=== PATIENT | female | born 1980 | race Caucasian/White ===

== ENCOUNTER → 2016-05-24 | Outpatient (CLI) | payer OTHER ==
[~2016-05-24] MED LIST: DOCO200C2 PO; PRENTAB26 PO
[2016-05-24 12:01] LABS: URINE APPEARANCE CLEAR (CLEAR); URINE BILIRUBIN NEG (NEG); URINE COLOR YELLOW; URINE EPITHELIAL CELL AUTO >30 /lpf (0-5); URINE NITRITE NEG (NEG); URINE PH 7.5 (4.5-7.5); UROBILINOGEN NEG (NEG)
[2016-05-24 12:21] LABS: MANUAL MICROSCOPIC REQUIRED? NO; REVIEW REQ? NO
== END | disposition home or self-care (01) ==
LOC: C.LABSPEC 11:24
PROVIDERS: ATTEND Obstetrics & Gynecology
DX: Z34.80 Encounter for supervision of other normal pregnancy, unspecified trimester (principal)

== ENCOUNTER → 2016-05-26 | Outpatient (CLI) | payer OTHER ==
[2016-05-26 17:42] LABS: BASO % 0.4 %; BASO ABS # 0.06 K/uL (0-0.2); COMPLETE YES; EOS % 0.5 %; HEMATOCRIT 39.5 % (37-47); IG% 0.3 %; LYMPH % 20.7 %; LYMPH ABS # 3.16 K/uL (1.2-3.4); MEAN CELL VOLUME 75.2 fL (80-100); MEAN CORPUSCULAR HEMOGLOBIN 25.7 pg (25-34); MEAN CORPUSCULAR HGB CONC 34.2 g/dl (32-36); MONO % 7.5 %; NEUT % 70.6 %; PLATELET COUNT 252 K/uL (130-400); RED BLOOD COUNT 5.25 M/uL (4.2-5.4); WHITE BLOOD COUNT 15.25 K/uL (4.8-10.8)
[2016-06-01 13:53] LABS: CHLAMYDIA TRACH RNA*** NOT DETECTED (NOT DETECTED); GC (NEIS GONORRHOEAE)RNA** NOT DETECTED (NOT DETECTED)
== END | disposition home or self-care (01) ==
LOC: C.LAB1850 16:12
PROVIDERS: ATTEND Obstetrics & Gynecology
DX: Z34.81 Encounter for supervision of other normal pregnancy, first trimester (principal)

== ENCOUNTER → 2016-07-13 | Outpatient (CLI) | payer OTHER ==
[2016-07-13 13:15] LABS: GTGD 50 Grams
== END | disposition home or self-care (01) ==
LOC: C.LAB1850 09:34
PROVIDERS: ATTEND Obstetrics & Gynecology
DX: Z34.82 Encounter for supervision of other normal pregnancy, second trimester (principal)

== ENCOUNTER → 2016-10-06 | Outpatient (CLI) | payer OTHER ==
[2016-10-06 17:24] LABS: HEMATOCRIT 34.3 % (37-47)
[2016-10-06 17:39] LABS: GTGD 50 Grams
[2016-10-06 18:14] LABS: URINE APPEARANCE CLEAR (CLEAR); URINE BILIRUBIN NEG (NEG); URINE COLOR YELLOW; URINE EPITHELIAL CELL AUTO >30 /lpf (0-5); URINE NITRITE NEG (NEG); URINE PH 7.5 (4.5-7.5); UROBILINOGEN NEG (NEG)
[2016-10-06 18:15] LABS: MANUAL MICROSCOPIC REQUIRED? NO; REVIEW REQ? NO
== END | disposition home or self-care (01) ==
LOC: C.LAB1850 16:13
PROVIDERS: ATTEND Obstetrics & Gynecology
DX: Z34.82 Encounter for supervision of other normal pregnancy, second trimester (principal)

== ENCOUNTER → 2016-10-24 | Outpatient (CLI) | payer OTHER | END | disposition home or self-care (01) | LOC: C.LAB1850 07:27 | PROVIDERS: ATTEND Obstetrics & Gynecology | DX: O28.1 Abnormal biochemical finding on antenatal screening of mother (principal) ==

== ENCOUNTER → 2016-12-01 | Outpatient (CLI) | payer OTHER | END | disposition home or self-care (01) | LOC: C.LABSPEC 17:43 | PROVIDERS: ATTEND Obstetrics & Gynecology | DX: Z34.83 Encounter for supervision of other normal pregnancy, third trimester (principal) ==

== ENCOUNTER 2017-01-05 07:28 | Inpatient (IN) | payer OTHER ==
[~2017-01-05] VITALS: Ht 172.7 cm; Wt 90.9 kg
[2017-01-05] MEDS ORDERED: LACTATED RINGER'S 1000ML 1,000 ML IV PRN (07:56)
[2017-01-05] MEDS ORDERED: LACTATED RINGER'S 1000ML 500 ML IV PRN ×2 (08:05→14:00)
[2017-01-05] MEDS ORDERED: OXYTOCIN 30 UNITS/500ML NSS IV PRN ×2 (08:15→15:00)
[2017-01-05 08:29] LABS: HEMATOCRIT 36.3 % (37-47); MEAN CELL VOLUME 78.7 fL (80-100); MEAN CORPUSCULAR HEMOGLOBIN 26.2 pg (25-34); MEAN CORPUSCULAR HGB CONC 33.3 g/dl (32-36); MEAN PLATELET VOLUME 9.8 fL (7.4-10.4); PLATELET COUNT 160 K/uL (130-400); RED BLOOD COUNT 4.61 M/uL (4.2-5.4); WHITE BLOOD COUNT 10.87 K/uL (4.8-10.8)
[2017-01-05 08:35] VITALS: Ht 172.7 cm; Wt 90.9 kg
[2017-01-05] MEDS: LACTATED RINGER'S 1000ML 1,000 ML IV SCH ×2 (08:54→12:49)
[2017-01-05] MEDS ORDERED: EpHEDrine SULFATE INJ 50 MG/ML AMP ONE (12:22)
[2017-01-05] MEDS ORDERED: FENTANYL 2MCG/ML ROPIV 1.25MG/ML 100ML BAG EPI ONE (12:22)
[2017-01-05] MEDS ORDERED: BUPIVACAINE 0.25% 30 ML VIAL ONE (12:22)
[2017-01-05] MEDS ORDERED: FENTANYL CITRATE INJ 50 MCG/1 ML 2 ML VIAL ONE (12:23)
[2017-01-05] MEDS ORDERED: DiphenhydrAMINE HCL 50 MG/ML VIAL IV PRN (14:00)
[2017-01-05] MEDS ORDERED: FENTANYL 2MCG/ML ROPIV 1.25MG/ML 100ML BAG EPI PRN (14:00)
[2017-01-05] MEDS ORDERED: NALOXONE HCL INJ 1 MG in SODIUM CHLORIDE 0.9% 1000ML 1,000 ML IV PRN (14:00)
[2017-01-05] MEDS ORDERED: NALBUPHINE HCL INJ 10 MG/ML AMP IV PRN (14:00)
[2017-01-05] MEDS ORDERED: PROMETHAZINE HCL INJ 6.25 MG in SODIUM CHLORIDE 0.9% 50ML 50 ML IV PRN (14:00)
[2017-01-05] MEDS ORDERED: ONDANSETRON INJ 2 MG/ML 2 ML VIAL IV PRN (14:00)
[2017-01-05] MEDS ORDERED: EpHEDrine SULFATE INJ 50 MG/ML AMP IV PRN (14:00)
[2017-01-05] MEDS ORDERED: NALOXONE HCL INJ 0.4 MG/1 ML VIAL/CARP IV PRN (14:00)
[2017-01-05] MEDS ORDERED: NITROGLYCERIN/D5W 100 MCG/ML BTL ONE (14:50)
[2017-01-05] MEDS ORDERED: CEFAZOLIN SOD 1 GM VIAL ONE (14:50)
[2017-01-05] MEDS ORDERED: SUPERCREAM 0.870 % 15GM JAR EXT PRN (15:00)
[2017-01-05] MEDS ORDERED: HYDROCORTISONE ACETATE 25 MG SUPP PR PRN (15:00)
[2017-01-05] MEDS ORDERED: IBUPROFEN 600 MG TAB PO PRN (15:00)
[2017-01-05] MEDS ORDERED: BENZOCAINE 20% AER SPR 82.5 GM CAN EXT PRN (15:00)
[2017-01-05] MEDS ORDERED: LANOLIN OINT EXT PRN ×2 (15:00)
[2017-01-05] MEDS ORDERED: ACETAMINOPHEN/CODEINE 300/30MG TAB PO PRN ×2 (15:00)
[2017-01-05] MEDS ORDERED: OXYCODONE/ACETAMINOPHEN 5-325 TAB PO PRN (15:00)
[2017-01-05] MEDS ORDERED: ACETAMINOPHEN 325 MG TAB PO PRN (15:00)
[2017-01-05] MEDS ORDERED: MEPERIDINE HCL 25 MG/ML CARP ONE (15:09)
--- NOTE | 2017-01-05 15:27 | DELIVERY SUMMARY ---
DATE OF OPERATION: 01/05/2017 Kenny was induced on January 05, 2017 for post-dates 41 weeks and 0 days, 4 cm dilated, group B strep negative, uncomplicated , second baby. She received Pitocin and then ruptured spontaneously for membranes. She then became fully dilated. Her heart rate tracing was category 1. Pushed only a few contractions and was able to deliver a baby in left occiput anterior position. Mouth and then nares suctioned. Baby was delivered with gentle traction. No excessive force used. Live, vigorous male intact. Cord clamped and cut. Cord gases obtained. Cord blood obtained. 3-0 Vicryl was used to repair a second degree tear. Sponge, needle and instrument counts correct. Unfortunately the placenta was retained and after more than 30 minutes of waiting I was unable to remove it. We went back to the operating room on the 4th floor and Dr. Arevalo increased her epidural dose and was given some nitroglycerin as well to relax the uterus. At this stage I was then able to do a manual extraction of the uterus. IV Ancef 2 grams was given as well. I felt at this stage I was able to manually examine the entire uterus and there was no more retained products. Carefully I looked at the cervix. There was no laceration and her second degree tear was still intact. Sponge and instrument counts were correct. Estimated blood loss for the entire procedure 300 mL. I attest to the content of the Intraoperative Record and any orders documented therein. Any exception s are noted below.
--- NOTE | 2017-01-05 16:32 | Anesthesia Procedure Note ---
Anesthesia Epidural Removal Nt Date & Time Jan 05, 2017 at 16:32 Vital Signs Pain Intensity: 0.0 Notes Mental Status: alert / awake / arousable, participated in evaluation Nausea / Vomiting: adequately controlled Pain: adequately controlled Airway Patency, RR, SpO2: stable & adequate BP & HR: stable & adequate Hydration State: stable & adequate Neuraxial Anesthesia: was administered Anesthetic Complications: no major complications apparent, pt satisfied with anesthetic care Epidural: removed without complications, with tip intact
--- NOTE | 2017-01-05 16:32 | Anesthesiology Progress Note ---
Anesthesia Post Op Note Date & Time Jan 05, 2017 at 16:32 Vital Signs Pain Intensity: 0.0 Notes Mental Status: alert / awake / arousable, participated in evaluation Pt Amnestic to Procedure: No Nausea / Vomiting: adequately controlled Pain: adequately controlled Airway Patency, RR, SpO2: stable & adequate BP & HR: stable & adequate Hydration State: stable & adequate Anesthetic Complications: no major complications apparent Patient was not sedated. Hemodynamics and uterine tone managed by anesthesiologist.
[2017-01-05 18:20] VITALS: BP 121/67; PULSE 105; TEMP 36.7
[2017-01-05 20:05] VITALS: BP 90/58; PULSE 81; TEMP 36.7; O2SAT 97
[2017-01-05] MEDS: DOCUSATE SODIUM 100 MG CAP PO SCH (20:28)
[2017-01-05 23:20] VITALS: BP 99/61; PULSE 86; TEMP 37; O2SAT 99
[2017-01-06 04:20] VITALS: BP 109/61; PULSE 91; TEMP 36.9; O2SAT 98
--- NOTE | 2017-01-06 06:39 | OB/GYN Progress Note ---
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 Subjective conversation w/ patient, physical exam, chart review, lab review Ambulation: ambulating normally Voiding: no voiding problems Passing Gas: Yes Diet Tolerance: Regular Diet Lochia: Moderate Feeding Type: Breast Feeding Pain: controlled Review of Systems Respiratory: No shortness of breath Cardiac: No chest pain Abdomen: No nausea, No vomiting Female : No dysuria Objective Vital Signs Date Time Temp Pulse Resp B/P (MAP) Pulse Ox O2 Delivery O2 Flow Rate FiO2 01/06/17 04:20 36.9 91 16 109/61 (77) 98 Room Air 01/05/17 23:20 37.0 86 16 99/61 (74) 99 Room Air 01/05/17 23:20 Room Air 01/05/17 20:05 36.7 81 20 90/58 (69) 97 Room Air 01/05/17 18:20 36.7 105 18 121/67 (85) Room Air 01/05/17 17:50 Room Air Physical Exam General Appearance: WELL-APPEARING, WD/WN, NO APPARENT DISTRESS Respiratory/Chest: lungs clear Cardiovascular: regular rate, rhythm Abdomen: normal bowel sounds, soft Fundus: Firm, Tender (appropriately tender), Relation to Umbilicus (fundus at level of U) Extremities: non-tender Laboratory Results Last 24 Hours Test 01/05/17 08:13 01/06/17 04:44 White Blood Count 10.87 K/uL Red Blood Count 4.61 M/uL Hemoglobin 12.1 g/dL Hematocrit 36.3 % Mean Corpuscular Volume 78.7 fL Mean Corpuscular Hemoglobin 26.2 pg Mean Corpuscular Hemoglobin Concent 33.3 g/dl RDW Standard Deviation 45.6 fL RDW Coefficient of Variation 15.8 % Platelet Count 160 K/uL Mean Platelet Volume 9.8 fL Assessment and Plan Post- Day Number: 1 Continue Routine Care: - Vital Signs reviewed and WNL. - Hemoglobin pending. - Blood Type: O-, GBS-, Rubella Immune. AntiD profile ordered. - Baby is A+. Will order rhogam to be given today. - Delivery complicated by delayed placental delivery requiring manual extraction. - Pt is doing well clinically. - Encourage Ambulation, Monitor and Control pain with Motrin PRN, Resume regular diet, Monitor Lochia - Encourage Breast Feeding. - Routine PPD 1 AKSHAT HAVEN PGY1 FMR Resident Physician Supervision Note: I interviewed and examined the patient. Discussed with Dr. Sy and agree with findings and plan as documented in the note. Any exceptions or clarifications are listed here: [None] Documented By: Joce Chowdary
[2017-01-06 07:01] LABS: HEMATOCRIT 31.2 % (37-47)
--- NOTE | 2017-01-06 07:03 | Discharge Instructions ---
Discharge Instructions Date of Service Jan 06, 2017. Admission Reason for Admission: Induction Discharge Discharge Diagnosis / Problem: Delivery Discharge Goals Goal(s): Routine recovery after delivery Medications Continue Dispensed Medications: supercream, dermaplast, tucks, lansinoh Activity Recommendations Activity Limitations: per Instructions/Follow-up section . Instructions / Follow-Up Instructions / Follow-Up ACTIVITY RECOMMENDATIONS: * Gradual return to full activity over the next 2-3 weeks. * No lifting - nothing heavier than baby over the next 2-3 weeks. * Do not engage in vigorous exercise, sexual activity or sports until cleared by your physician. * Do not drive or operate any motorized equipment until cleared by your physician. * You may shower/bathe daily. MEDICATIONS: For discomfort or pain, you may use Acetaminophen (Tylenol), Ibuprofen (Advil), or Naproxen (Aleve) following the package directions. For constipation you may use Colace following the package directions. BREAST CARE: If you are not breast feeding: * Wear a supportive bra 24 hours a day for one to two weeks. * Avoid stimulating your breasts and nipples as much as possible during the first few weeks after delivery. * When taking a shower, have the warm water hit your back, not breasts. * When your breasts feel full, apply ice packs. Usually three to four times a day helps ease the discomfort. * Take a mild pain medication (Tylenol / Motrin) when you are uncomfortable. If breast feeding: * Use breast milk to lubricate nipples. Lansinoh cream may be used for sore nipples. You do not need to remove cream prior to breast feeding. If using a different brand of cream, check the label for directions regarding removal of cream prior to nursing. * Wear a supportive bra. * If having problems with breasts or breast feeding, call a business objects consultant or your health care provider. EPISIOTOMY CARE: After delivery, if you have an episiotomy (stitches), the following steps will ease discomfort and aid healing. * For the first 24 hours after delivery, place ice packs next to your episiotomy to help reduce swelling. * After the first 24 hour-period, sitz baths, either portable or in the tub, are suggested. A shower with a shower arm sprayed over the episiotomy may be comforting. * Sharon care should be done after each voiding and bowel movement. Squirt warm water from a plastic bottle over the perineum (region of the body between the anus and urinary opening) and pat dry. * Use Dermoplast to ease discomfort. Shake container. [place] directly over the episiotomy. Place a Tucks on a clean sanitary pad next to your episiotomy. SPECIAL CARE INSTRUCTIONS: When you are discharged from the hospital, it is important for you to follow the instructions listed below: * During the first week at home, you should be able to care for yourself and your baby. In addition, the usual light household activities are encouraged. * Limit your activities to the way you feel. Do not try to clean the house or move furniture. Be sensible. * If you actively engage in sports and have done so up until the time of your delivery, you may resume these activities as soon as you feel able. This may take up to one month or even longer. Use good judgment. * Continue to take your vitamins for at least six weeks after the of your baby. * Your diet need not be limited unless you were on a special diet before your delivery. Breast-feeding mothers need around 2500 calories per day and at least 64-80 ounces of fluid per day (8 to 10 glasses). * You should eat foods from the four major food groups. Crash diets or fad diets are to be avoided. Eating lean meats, fresh fruits and vegetables, low-fat dairy products, high fiber foods and a regular exercise program, will help you get back to your pre- weight without putting your health at risk. * Constipation is sometimes a problem after delivery. Take a mild laxative as needed. If breast feeding, Milk of Magnesia is acceptable to use. You may use a suppository or Fleets enema if no episiotomy. * A daily shower or tub bath is suggested. Be sure to thoroughly and gently dry the perineum. * A bloody vaginal discharge will usually continue until around four weeks post . A small amount of bleeding may continue for as long as six weeks. Vaginal discharge changes from the bright red bleeding after delivery to pink then brownish and finally yellowish-pink before becoming white and disappearing. * Bleeding may increase with activity. Your first period may come in 4-8 weeks. If you are breast feeding, your period may be delayed even longer. * [place] (sex) can begin whenever both you and your partner feel comfortable and do not have any form of genital infection. It is recommended that you wait at least six weeks for internal and external healing to occur. If you have questions, please talk to your health care practitioner. A condom should be used to prevent infection and . * Foreplay, gentle intercourse and lubrication is very important the first several times to prevent pain. A water-based lubricant such as K-Y jelly or Astroglide may be used. * If you have RH negative blood and your baby is RH positive, you will receive RHOGAM by injection prior to discharge. The nurse will give you a card to keep with you that has the date and place that you received RHOGAM after delivery. * During your care, you had a Rubella screen done to check for the presence of rubella antibodies in your blood. If your test was negative, you will receive a Rubella vaccine prior to discharge. This vaccine may cause a fever, soreness at the injection site and flu-like symptoms. If these symptoms persist, notify your health care practitioner. is not advised for one month after a Rubella vaccine. * Verbalizes understanding of car seat law as reviewed with patient nursing. * Car Seat hand-out given and reviewed with patient by nursing. * Shaken baby information reviewed with patient by nursing. Call you doctor if: * Heavy bleeding (saturating several pads an hour) or passing clots the size of your fist. * A fever >101 degrees F (38.3 degrees C) on two occasions four hours apart and /or chills. * Unusual pain in the pelvic or vaginal areas. * "Baby Blues" lasting longer than two weeks. If you have any questions or concerns, call your health care practitioner at . FOLLOW UP VISIT: * Please call the office at to schedule a 6 week examination. It is important you keep this appointment. It is important for you to make arrangements for either yearly or twice yearly check-ups thereafter. Current Hospital Diet Patient's current hospital diet: Regular OB Diet Discharge Diet Recommended Diet: Regular Diet Pending Studies Studies pending at discharge: no Medical Emergencies . Who to Call and When: Medical Emergencies: If at any time you feel your situation is an emergency, please call 911 immediately. . Non-Emergent Contact Non-Emergency issues call your: Primary Care Provider . . "Provider Documentation" section prepared by Regina Sy. . VTE Core Measure Inpt VTE Proph given/why not?: Treatment not indicated Resident Tracking Resident Involvement: Resident Care Provided Care Provided: OB Delivery
[2017-01-06] MEDS ORDERED: PRENATAL VITAMIN TAB PO SCH (08:00)
[2017-01-06] MEDS: DOCUSATE SODIUM 100 MG CAP PO SCH (08:26)
[2017-01-06 09:00] VITALS: BP 112/64; PULSE 85; TEMP 36.9; O2SAT 98
[2017-01-06 12:20] VITALS: BP 115/67; PULSE 84; TEMP 37.3; O2SAT 97
[2017-01-06 15:40] VITALS: BP_DIAS 67; PULSE 84; TEMP 37.3
[2017-01-06] MEDS ORDERED: BISACODYL 5 MG TABEC PO SCH (20:00)
[2017-01-07] MEDS ORDERED: BISACODYL 10 MG SUPP PR PRN (07:00)
== END 2017-01-06 16:10 | disposition home or self-care (01) | DRG 774 ==
LOC: C.LD 07:28 → C.OBG 17:58
PROVIDERS: ADMIT Obstetrics & Gynecology; ATTEND Obstetrics & Gynecology
PROC: 10E0XZZ Delivery of Products of Conception, External Approach (ICD-10-PCS; principal; 2017-01-05)
PROC: 0KQM0ZZ Repair Perineum Muscle, Open Approach (ICD-10-PCS; principal; 2017-01-05)
DX: O48.0 Post-term pregnancy (principal); O72.2 Delayed and secondary postpartum hemorrhage; O26.893 Other specified pregnancy related conditions, third trimester; O70.1 Second degree perineal laceration during delivery; O36.8130 Decreased fetal movements, third trimester, not applicable or unspecified; Z67.41 Type O blood, Rh negative; Z37.0 Single live birth; Z3A.41 41 weeks gestation of pregnancy

== ENCOUNTER → 2017-05-22 | Outpatient (CLI) | payer OTHER ==
--- NOTE | 2017-05-22 14:28 | DIAGNOSTIC IMAGING REPORT ---
WRIST W/NAVICULAR MIN 3 VIEWS HISTORY: 37 years-old Female R WRIST PAIN acute right-sided wrist pain COMPARISON: None available TECHNIQUE: 4 views of the wrist with PA navicular view FINDINGS: No acute fracture, subluxation or significant degenerative changes. The scaphoid appears intact. No opaque foreign body or significant soft tissue swelling. IMPRESSION: No acute fracture or subluxation. The above report was generated using voice recognition software. It may contain grammatical, syntax or spelling errors. Electronically signed by: Ernesto Swift M.D. 05/22/2017 2:27 PM Dictated Date/Time: 05/22/2017 2:25 PM
== END | disposition home or self-care (01) ==
LOC: C.RAD 13:57
PROVIDERS: ATTEND Physician Assistant
DX: M25.531 Pain in right wrist (principal)

== ENCOUNTER 2021-03-17 07:08 | Inpatient (IN) ==
[2021-03-17] MEDS ORDERED: OXYTOCIN 30 UNITS/500 ML BAG IV PRN ×3 (08:03→14:01)
[2021-03-17] MEDS: LACTATED RINGER'S 1,000 ML IV PRN ×2 (08:48→12:45)
--- NOTE | 2021-03-17 08:50 | History & Physical Report ---
Date of Service March 17, 2021 Assessment & Plan (1) Encounter for induction of labor: Plan: plan pitocin induction and arom when indicated. epidural on demand. Fetus category one. Anticipate . Admission and Anticipated Discharge Date Admission Date: March 17, 2021 History of Present Illness Chief Complaint: induction Primary Care Provider: NO PCP Patient is a with iup at 40 0/7 weeks who presents to labor and delivery for elective induction of labor. Patient notes some cramping but no contractions. No lof/vb. +fm. Patient is AMA with low risk panorama. Rh neg. Hx of thyroiditis, followed by PCP and nl tfts through . OB Labs: Blood Type O Negative 08/03/20 Antibody Screen NEGATIVE 12/23/20 Hemoglobin 11.5 g/dL (12.0-16.0) L 12/23/20 Hematocrit 35.6 % (37-47) L 12/23/20 Mean Corpuscular Volume 75.7 fL (80-100) L 08/03/20 Platelet Count 296 K/uL (130-400) 08/03/20 A Rubella IgG Antibody Immune (Immune) 08/03/20 Rapid Plasma Reagin Nonreactive (Nonreactive) 08/03/20 Hepatitis B Surface Antigen Neg (Neg) 08/03/20 HIV (1&2) Ab and P24 Ag, 4th Gener Neg (Neg) 08/03/20 Glucose 1 Hour 50 gm Load 139 mg/dl (70-130) H 12/23/20 Maternal Serum Alpha Fetoprotein 43.1 ng/mLB 10/01/20 OB Optional Labs: Chlamydia trachomatis RNA NOT DETECTED (NOT DETECTED) 08/03/20 Neisseria gonorrhoeae RNA NOT DETECTED (NOT DETECTED) 08/03/20 Thyroid Stimulating Hormone (TSH) 1.490 uIu/ml (0.300-4.500) 12/23/20 Alpha Fetoprotein Triple Screen SEE NOTE 10/01/20 Labs Reviewed: declined cf/sma--akh low risk cfdna--akh neg afp--akh gbs neg Allergies Allergy/AdvReac Type Severity Reaction Status Date / Time Sulfa (Sulfonamide Allergy Mild RASH Verified 03/16/21 13:16 Antibiotics) Home Medications Medication Instructions Recorded Confirmed Type omega-3 fatty acids [Fish Oil] PO 07/26/20 03/16/21 History prenat.vits,lynn,[id number] 1 tab PO DAILY 07/26/20 03/17/21 History breast pump #1 ea 02/17/21 03/16/21 Rx Patient History Medical History Family history of malignant neoplasm of female breast Groin cyst Heart palpitations History of chicken pox Normal labor Post-dates Thyroiditis Surgical History History of colposcopy S/P wisdom tooth extraction Family History Mother Breast cancer Hypertension Denies family history of Ovarian cancer Colorectal cancer Social History Smoking Status: Never smoker Second Hand Exposure: No; Do You Dip or Chew Tobacco: No; Hx Alcohol Use: No Hx Substance Use: No Preferred Language: Ivorian Communication Ability: Effective 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: No Beliefs That Will Affect Care: None marital status: marital status details: [place] (41) [phone] Current Living Situation: Spouse Current Living Situation Comment: lives with spouse, 2 children, dog current occupational status: employed 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 Other Information That Helps Us Care for You: No Feels Safe at Home: Yes Safety Concerns: Feels Safe At This Time Assistive Devices: None OB History g1--09/18, 7#5, no issues g2--01/21, , 8#13, no issues 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
[2021-03-17 08:54] LABS: Hematocrit (blood only) 37.3 % (37-47); Mean Corpuscular Hemoglobin 27.3 pg (25-34); Mean Corpuscular Hgb Conc 34.9 g/dL (32-36); Mean Corpuscular Volume 78.2 fL (80-100); Mean Platelet Volume 9.5 fL (7.4-10.4); Platelet Count 232 K/uL (130-400); RDW Coefficient of Variation 16.2 % (11.5-14.5); RDW Standard Deviation 46.5 fL (36.4-46.3); Red Blood Count 4.77 M/uL (4.2-5.4); White Blood Count 11.59 K/uL (4.8-10.8)
[2021-03-17] MEDS ORDERED: FLUARIX QUADRIVALENT 0.5 ML SYR IM ONE (09:00)
[2021-03-17] MEDS ORDERED: SODIUM CHLORIDE 0.9% INJ 10 ML VIAL ONE (12:20)
[2021-03-17] MEDS ORDERED: ePHEDrine sulfate 50 MG/ML AMP ONE (12:20)
[2021-03-17] MEDS ORDERED: BUPIVACAINE 0.25% 30 ML VIAL ONE ×2 (12:20→13:12)
[2021-03-17] MEDS ORDERED: fentaNYL citrate 100 MCG/2 ML VIAL ONE ×2 (12:21→13:14)
[2021-03-17] MEDS ORDERED: fentaNYL 2MCG/ML ROPIVACAINE 1.25MG/ML 100 ML BAG EPI ONE (12:21)
[2021-03-17] MEDS ORDERED: NALOXONE HCL 0.4 MG/1 ML VIAL/CARP IV PRN (12:37)
[2021-03-17] MEDS ORDERED: ONDANSETRON INJ 2 MG/ML 2 ML VIAL IV PRN (12:37)
[2021-03-17] MEDS ORDERED: NALOXONE HCL 1 MG in SODIUM CHLORIDE 0.9% 1000ML 1,000 ML IV PRN (12:37)
[2021-03-17] MEDS ORDERED: NALBUPHINE HCL INJ 10 MG/ML AMP IV PRN (12:37)
[2021-03-17] MEDS ORDERED: diphenhydrAMINE 50 MG/ML VIAL IV PRN (12:37)
[2021-03-17] MEDS ORDERED: fentaNYL 2MCG/ML ROPIVACAINE 1.25MG/ML 100 ML BAG EPI PRN (12:37)
[2021-03-17] MEDS ORDERED: ePHEDrine sulfate 50 MG/ML AMP IV PRN (12:37)
--- NOTE | 2021-03-17 12:45 | Anesthesiology Consultation ---
Date of Service March 17, 2021 Assessment & Plan Chart Review Chart Review: Patient NOT seen in Pre Admission Testing and Acceptable Risk for Labor Epidural Consults Requested none ASA ASA2 Proposed Anesthesia Anesthesia Type: Labor Epidural and CSE Risk / Benefits Reviewed With: PT / POA / Parent / Guardian, Accepts Plan and Informed Consent Obtained History Height/Weight Height: 5 ft 8 in Weight: 96.162 kg Allergies Allergy/AdvReac Type Severity Reaction Status Date / Time Sulfa (Sulfonamide Allergy Mild RASH Verified 03/16/21 13:16 Antibiotics) Medications Home Medications Medication Instructions Recorded Confirmed Last Taken omega-3 fatty acids [Fish Oil] PO 07/26/20 03/16/21 03/16/21 prenat.vits,lynn,[id number] 1 tab PO DAILY 07/26/20 03/17/21 03/16/21 breast pump #1 ea 02/17/21 03/16/21 Unknown Active Medications Generic Name Dose Route Start Last Admin Trade Name Freq PRN Reason Stop Dose Admin Lactated Ringer's 1,000 mls @ 125 mls/hr 03/17/21 08:03 03/17/21 11:34 Lr IV 03/19/21 08:02 999 mls/hr .Q8H PRN Infusion L&D Protocol Protocol Oxytocin 30 units in 500 mls @ 9 mls/hr 03/17/21 08:03 03/17/21 11:30 Pitocin IV 03/19/21 08:02 0.54 units/hr .Q24H PRN 9 mls/hr Labor Induction/Augmentation Titration Protocol 0.54 UNITS/HR NPO Date Last Intake of Fluids: 03/17/21 Time Last Intake of Fluids: 12:00 Date Last Intake of Solids: 03/17/21 Time Last Intake of Solids: 07:00 Past Medical History Medical History Family history of malignant neoplasm of female breast Groin cyst Heart palpitations History of chicken pox Normal labor Post-dates Thyroiditis Exercise / Class Metabolic Activity II 4-5 Yardwork/Stairs/Walk up hill Past Family History Family History Mother Breast cancer Hypertension Denies family history of Ovarian cancer Colorectal cancer Past Surgical History Surgical History History of colposcopy S/P wisdom tooth extraction Past Anesthesia History No Hx of Anesthesia Complications and No Family Hx of Anesthesia Complications History of PONV No Hx of PONV and No Hx of Motion Sickness Social History Smoking Status: Never smoker Do You Dip or Chew Tobacco: No Hx Alcohol Use: No Hx Substance Use: No substance use type: does not use Review of Systems no chest pain or sob Physical Exam Vital Signs Last Vital Signs Temp 36.9 C 03/17/21 11:28 Pulse 83 03/17/21 12:43 Resp 18 03/17/21 11:28 BP 124/78 03/17/21 12:43 Pulse Ox 98 03/17/21 12:42 ENMT Mouth: no TMJ abnormality Thyromental Distance: > or= 3.5 Finger Breadths Mallampati Class: II Neck normal visual inspection Respiratory normal respiratory effort Auscultation: lungs clear to auscultation bilaterally Cardiovascular Rate/Rhythm: regular rate and regular rhythm Musculoskeletal Spine: normal cervical ROM Neurologic moves all extremities Psychiatric Orientation: alert and oriented x 3 Testing Laboratory Results 03/17/21 08:22
[2021-03-17] MEDS ORDERED: SUPERCREAM 0.870% 15 GM JAR EXT PRN (14:01)
[2021-03-17] MEDS ORDERED: HYDROCORTISONE ACETATE 25 MG SUPP PR PRN (14:01)
[2021-03-17] MEDS ORDERED: ACETAMINOPHEN 325 MG TAB PO PRN (14:01)
[2021-03-17] MEDS ORDERED: IBUPROFEN 600 MG TAB PO PRN (14:01)
[2021-03-17] MEDS ORDERED: DIPHTHERIA/TETANUS/PERTUSSIS 0.5 ML SYR/VIAL IM ONE (14:01)
[2021-03-17] MEDS ORDERED: BENZOCAINE 20% AER SPR 82.5 GM CAN EXT PRN (14:01)
--- NOTE | 2021-03-17 14:05 | Delivery Summary ---
Vaginal Delivery Summary Date of Service March 17, 2021 Vaginal Delivery Summary and 2nd Degree LAC Pre-operative Diagnosis: at 40 weeks Post-operative Diagnosis: same Procedure: pitocin induction epidural srom second degree laceration and repair EBL: 400cc Anesthesia: epidural Procedure: the patient presented to labor and delivery for elective induction with favorable cervix. Pitoin was initiated. She got an epidural then had srom. She progressed quickly to c/c/ +1. The patient pushed for 3-4 contractions to deliver a viable female infant in kelsea position. The anterior shoulder was immediately delivered and the rest of was then delivered without difficulty. The baby was vigorous. The nose and mouth were again bulb suctioned and the infant was placed in the maternal abdomen for drying and attention. Cord was clamped and cut at one minute of life. Cord blood and segment obtained. Placenta delivered spontaneous, intact with a three vessel cord. Cervix/sulci/rectum were intact. A second degree perineal laceration was repaired in the normal standard fashion. Hemostasis obtained with dilute pitocin and fundal massage. Apgars were 8/9. Mother and baby doing well at the end of the delivery. [facility] [place] Vaginal Delivery Charge Delivery Type Details: and 2nd Degree LAC
[2021-03-17] MEDS ORDERED: COSYNTROPIN 1,000 MCG in SODIUM CHLORIDE 0.9% 50 ML IV ONE (14:45)
[2021-03-17] MEDS ORDERED: CAFFEINE CITRATE 500 MG in SODIUM CHLORIDE 0.9% 1000ML 1,000 ML IV SCH (15:00)
--- NOTE | 2021-03-17 15:05 | Anesthesia Procedure Note ---
Date of Service March 17, 2021 Anesthesia Post Epidural Note Vital Signs Vital Signs: Temp Pulse Resp BP Pulse Ox 36.9 C 80 18 106/71 91 03/17/21 11:28 03/17/21 14:45 03/17/21 11:28 03/17/21 14:42 03/17/21 14:45 Pain Intensity Lower Abdomen: Pain Intensity: 4 Notes Mental Status: alert / awake / arousable and participated in evaluation Nausea / Vomiting: adequately controlled Pain: adequately controlled Airway Patency, RR, SpO2: stable & adequate BP & HR: stable & adequate Hydration State: stable & adequate Neuraxial Anesthesia: was administered and sensory block is resolving Anesthetic Complications: no major complications apparent, see Notes below and Pt Satisfied with anesthetic care Epidural: Removed without complications and With tip intact Notes: The patient had a CSE. The Touhy needle was initially placed at the L4/5 spinal space. ADDISON was obtained. The spinal needle was placed with CSF observed. The spinal dose was given. There was some difficulty threading the epidural catheter. While attempting to thread the catheter, the patient moved slightly and CSF was noted in the Touhy needle. The Touhy needle was immediately removed and an epidural catheter was easily placed at L3/4. The possibility of a dural puncture headache was discussed with the patient. She wanted to prophylactically prevent a dural headache. The patient was consented to get a blood patch prior to removal of her epidural catheter after delivery of her baby. The mobile sales assistant assisted during the procedure. Using sterile gloves and sterile technique the patient's left arm was prepped with Duraprep. A sterile tourniquet and two sterile 12 ml syringes were used to draw a total of 20 ml of blood from the patient's arm. The epidural catheter was disconnected from the running epidural pump, swabbed with alcohol, and then the blood was sterilely in jected by me into the epidural space. After 20 ml of blood were injected, the epidural catheter was removed with tip intact. The patient felt a "fullness" in her head after the blood patch but otherwise feels well. She will be given cosyntropin IV as well as caffeine IV. The patient was encouraged to stay well hydrated as well as to drink caffeinated beverages. Both NSAIDs and acetaminophen were encouraged for pain control. I spoke to her about possibly needing a second blood patch tomorrow or the following day if necessary.
[2021-03-17] MEDS: DOCUSATE SODIUM 100 MG CAP PO SCH (21:19)
--- NOTE | 2021-03-18 06:16 | Obstetrical Progress Note ---
Date of Service <Rikki Cole DO - Last Filed: 03/18/21 07:02> March 18, 2021 Assessment & Plan <Rikki Cole DO - Last Filed: 03/18/21 07:02> (1) Encounter for care and examination after delivery: 40 yo post day 1 from vaginal delivery, doing well. -Continue routine post care - vital signs reviewed and WNL. (Tmax 37.2) -Blood type O-, GBS -, Rubella Immune -Encourage ambulation, monitor and control pain with Motrin, tylenol PRN, resume regular diet, monitor lochia. -encourage breast feeding -hemoglobin 13.0 <Radha Poe MD, FACOG - Last Filed: 03/18/21 07:03> (1) Encounter for care and examination after delivery: Subjective <Rikki Cole DO - Last Filed: 03/18/21 07:02> Ambulation: ambulating normally Voiding: no voiding problems Passing Gas:: Yes Diet Tolerance:: regular diet Lochia:: Small Feeding Type:: breast feeding Current Pain Level(1-10): 0 Review of Systems Denies fever, chills, sweats Denies shortness of breath, difficulty breathing, chest pain, palpitations, chest pressure. Denies breast pain. Denies dysuria. Denies headache or changes in vision Physical Exam <Rikki Cole DO - Last Filed: 03/18/21 07:02> General: Alert, oriented. No acute distress. Cardiac: Regular rate and rhythm, no murmurs/rubs/gallops. Respiratory: Clear to auscultation bilaterally a/p, no wheezes/rales/rhonchi. No increased work of breathing. Symmetrical chest rise. No respiratory distress. Abdomen: Soft, nontender, nondistended. Bowel sounds present. Uterus: Uterine fundus firm, palpable 2 cm below umbilicus. Lower Extremities: No lower extremity edema or swelling. No deep calf pain. Alfredo's negative bilaterally Results & Data ([facility]) <Rikki Cole DO - Last Filed: 03/18/21 07:02> Vital Signs (Past 12 Hours) Vital Signs Temp Pulse Resp BP Pulse Ox 03/18/21 04:50 37.1 C 61 17 101/58 L 97 03/17/21 23:40 36.9 C 64 16 101/60 98 03/17/21 19:35 37.1 C 71 18 114/65 96 <Radha Poe MD, FACOG - Last Filed: 03/18/21 07:03> Co-Signing Physician Notes Resident Physician Supervision Note: I interviewed and examined the patient. Discussed with Dr. Mathis and agree with findings and plan as documented in the note. Any exceptions or c larifications are listed here: Doing well. PLan to monitor today for possibility of spinal seay. Probable d/c tomoorrow. Documented By: Radha Poe MD, FACOG Resident Activity Tracking <Rikki Cole DO - Last Filed: 03/18/21 07:02> Resident Involvement: Resident Care Provided Care Provided: OB Delivery
[2021-03-18 06:23] LABS: Hematocrit (blood only) 34.7 % (37-47); Hemoglobin 11.2 g/dL (12.0-16.0); Mean Corpuscular Hemoglobin 26.1 pg (25-34); Mean Corpuscular Hgb Conc 32.3 g/dL (32-36); Mean Corpuscular Volume 80.9 fL (80-100); Mean Platelet Volume 9.2 fL (7.4-10.4); Platelet Count 194 K/uL (130-400); RDW Coefficient of Variation 16.3 % (11.5-14.5); RDW Standard Deviation 47.9 fL (36.4-46.3); Red Blood Count 4.29 M/uL (4.2-5.4); White Blood Count 15.24 K/uL (4.8-10.8)
--- NOTE | 2021-03-18 08:08 | Anesthesiology Progress Note ---
Date of Service March 18, 2021 Anesthesia Post Procedure Vital Signs Vital Signs: Temp Pulse Pulse Resp BP BP Pulse Ox 03/18/21 04:50 37.1 C 61 17 101/58 L 97 03/17/21 23:40 36.9 C 64 16 101/60 98 03/17/21 19:35 37.1 C 71 18 114/65 96 03/17/21 16:35 37.2 C 80 16 110/67 97 03/17/21 15:12 82 125/59 L 03/17/21 15:02 79 111/70 03/17/21 14:52 88 113/70 03/17/21 14:45 80 91 03/17/21 14:42 67 106/71 100 03/17/21 14:37 81 100 03/17/21 14:32 82 100 03/17/21 14:27 88 99 03/17/21 14:22 82 99 03/17/21 14:17 81 99 03/17/21 14:12 86 100 03/17/21 14:07 103 H 119/56 L 99 03/17/21 14:04 100 H 111/58 L 03/17/21 14:02 103 H 99 03/17/21 14:01 84 118/64 03/17/21 13:58 91 H 116/63 03/17/21 13:57 88 99 03/17/21 13:55 89 116/66 03/17/21 13:52 100 H 99 03/17/21 13:49 214 H 141/118 H 03/17/21 13:47 137 H 100 03/17/21 13:46 89 127/68 03/17/21 13:43 102 H 134/72 03/17/21 13:42 109 H 100 03/17/21 13:40 99/69 L 03/17/21 13:37 92 H 100 03/17/21 13:36 81 104/58 L 03/17/21 13:34 81 106/57 L 03/17/21 13:32 86 100 03/17/21 13:31 86 105/56 L 03/17/21 13:27 85 105/55 L 100 03/17/21 13:25 113 H 109/60 03/17/21 13:22 82 100 03/17/21 13:21 100 H 106/59 L 03/17/21 13:19 104 H 105/56 L 03/17/21 13:17 94 H 100 03/17/21 13:15 87 106/54 L 03/17/21 13:12 111 H 100/57 L 99 03/17/21 13:09 86 109/56 L 03/17/21 13:07 92 H 106/65 100 03/17/21 13:06 81 90 03/17/21 13:04 53 L 112/69 03/17/21 13:02 86 99 03/17/21 13:01 83 125/66 03/17/21 12:58 95 H 131/65 03/17/21 12:57 97 H 99 03/17/21 12:55 93 H 128/71 03/17/21 12:52 80 134/76 100 03/17/21 12:49 97 H 122/68 03/17/21 12:47 73 100 03/17/21 12:46 88 118/65 03/17/21 12:43 83 124/78 03/17/21 12:42 78 98 03/17/21 11:28 36.9 C 18 03/17/21 11:25 68 101/53 L 03/17/21 08:09 36.9 C 18 Pulse Ox 03/18/21 04:50 03/17/21 23:40 03/17/21 19:35 03/17/21 16:35 03/17/21 15:12 03/17/21 15:02 03/17/21 14:52 03/17/21 14:45 03/17/21 14:42 03/17/21 14:37 03/17/21 14:32 03/17/21 14:27 03/17/21 14:22 03/17/21 14:17 03/17/21 14:12 03/17/21 14:07 03/17/21 14:04 03/17/21 14:02 03/17/21 14:01 03/17/21 13:58 03/17/21 13:57 03/17/21 13:55 03/17/21 13:52 03/17/21 13:49 03/17/21 13:47 03/17/21 13:46 03/17/21 13:43 03/17/21 13:42 03/17/21 13:40 03/17/21 13:37 03/17/21 13:36 03/17/21 13:34 03/17/21 13:32 03/17/21 13:31 03/17/21 13:27 100 03/17/21 13:25 03/17/21 13:22 03/17/21 13:21 03/17/21 13:19 03/17/21 13:17 03/17/21 13:15 03/17/21 13:12 03/17/21 13:09 03/17/21 13:07 03/17/21 13:06 03/17/21 13:04 03/17/21 13:02 03/17/21 13:01 03/17/21 12:58 03/17/21 12:57 03/17/21 12:55 03/17/21 12:52 03/17/21 12:49 03/17/21 12:47 03/17/21 12:46 03/17/21 12:43 03/17/21 12:42 03/17/21 11:28 03/17/21 11:25 03/17/21 08:09 Pain Intensity Lower Abdomen: Pain Intensity: 2 Transfer of Care Handoff Completed per policy Notes Mental Status: alert / awake / arousable Patient Amnestic to Procedure: Yes Nausea / Vomiting: adequately controlled Pain: adequately controlled Airway Patency, RR, SpO2: stable & adequate BP & HR: stable & adequate Hydration State: stable & adequate Neuraxial Anesthesia: was administered and sensory block resolved Anesthetic Complications: no major complications apparent and Pt Satisfied with anesthetic care Notes: The patient was given a prophylactic blood patch, cosyntropin, and caffeine to prevent a dural puncture headache. The patient feels well this morning without a headache. I spoke to her about the possibility of needing a second blood patch if she develops a dural puncture headache in the next few days.
[2021-03-18] MEDS: PRENATAL VITAMIN 1 TAB PO SCH (09:17)
[2021-03-18] MEDS: DOCUSATE SODIUM 100 MG CAP PO SCH ×2 (09:17→19:55)
--- NOTE | 2021-03-19 06:14 | Obstetrical Progress Note ---
Date of Service <Rikki Cole DO - Last Filed: 03/19/21 07:14> March 19, 2021 Assessment & Plan <Rikki Cole DO - Last Filed: 03/19/21 07:14> (1) Encounter for care and examination after delivery: 40 yo post day 2 from vaginal delivery, doing well. -Continue routine post care - vital signs reviewed and WNL. (Tmax 37.2) -Blood type O-, GBS -, Rubella Immune -Encourage ambulation, recommended to control pain with Motrin, tylenol PRN. -encourage breast feeding -hemoglobin 13.0 -Discussed discharge with patient. Patient will follow up in outpatient clinic in 6 weeks. <Pankaj Chowdary MD, FACOG - Last Filed: 03/19/21 07:25> (1) Encounter for care and examination after delivery: Subjective <Rikki Cole DO - Last Filed: 03/19/21 07:14> Ambulation: ambulating normally Voiding: no voiding problems Passing Gas:: Yes Diet Tolerance:: regular diet Lochia:: Small Feeding Type:: breast feeding Current Pain Level(1-10): 0 Review of Systems Denies fever, chills, sweats Denies shortness of breath, difficulty breathing, chest pain, palpitations, chest pressure. Denies breast pain. Denies dysuria. Denies headache or changes in vision Physical Exam <Rikki Cole DO - Last Filed: 03/19/21 07:14> General: Alert, oriented. No acute distress. Cardiac: Regular rate and rhythm, no murmurs/rubs/gallops. Respiratory: Clear to auscultation bilaterally a/p, no wheezes/rales/rhonchi. No increased work of breathing. Symmetrical chest rise. No respiratory distress. Abdomen: Soft, nontender, nondistended. Bowel sounds present. Uterus: Uterine fundus firm, palpable 2 cm below umbilicus. Lower Extremities: No lower extremity edema or swelling. No deep calf pain. Alfredo's negative bilaterally Results & Data ([facility]) <Rikki Cole DO - Last Filed: 03/19/21 07:14> Vital Signs (Past 12 Hours) Vital Signs Temp Pulse Resp BP 03/18/21 23:20 36.9 C 60 16 106/67 03/18/21 19:30 37.2 C 72 18 108/68 <Pankaj Chowdary MD, FACOG - Last Filed: 03/19/21 07:25> Co-Signing Physician Notes Resident Physician Supervision Note: I was present with Dr. Cole during the history and exam. I discussed the case with the resident and agree with the findings and plan as documented in the note. Any exceptions or clarifications are listed here: [None] Documented By: Pankaj Chowdary MD, FACOG Resident Activity Tracking <Rikki Cole DO - Last Filed: 03/19/21 07:14> Resident Involvement: Resident Care Provided Care Provided: OB Delivery
[2021-03-19] MEDS: DOCUSATE SODIUM 100 MG CAP PO SCH (07:45)
[2021-03-19] MEDS: PRENATAL VITAMIN 1 TAB PO SCH (07:45)
== END 2021-03-19 10:15 | disposition home or self-care (01) | DRG 807 ==
LOC: 4S1 07:08 → 4S2 16:39